=== PATIENT | female | born 1990 | race Caucasian/White ===

== ENCOUNTER → 2021-03-22 02:39 | Outpatient (CLI) | payer OTHER, SELFPAY ==
[2021-03-22 19:54] LABS: SARS-CoV-2 RNA PCR Negative
== END ==
PROVIDERS: Visit Provider Surgery Plastic and Reconstructive Surgery
DX: Z01.812 Encounter for preprocedural laboratory examination (principal); Z20.822 Contact with and (suspected) exposure to COVID-19
CPT/HCPCS: C9803; U0003; U0005

== ENCOUNTER 2021-03-25 08:56 | Day surgery (SDC) | payer OTHER, SELFPAY ==
[2021-03-17 12:09] VITALS: BMI 25.5
--- NOTE | 2021-03-24 13:26 | WPDANESEPPF ---
Anes - Initial Pre Proc Eval Procedure: Operation Date: 03/25/21 10:30 Proposed Procedures p Bilateral Breast Augmentation Mammoplasty - Elgin Francois MD Date/Time: 03/24/21 13:26 Surgeon: Elgin Francois MD Pre Op Diagnosis: Micromastia Patient Data Age: 30 Gender: F Height: 1.7 m Weight: 74 kg Allergies Allergy/AdvReac Type Severity Reaction Status Date / Time No Known Allergies Allergy Verified 03/25/21 09:24 Home Medications Medication Instructions Recorded Confirmed Type trcydxahjtvg-wme-mxhf-FA-vit K 1 tablet PO DAILY 03/17/21 03/25/21 History [Adults Multivitamin] docusate sodium 100 mg capsule 100 mg PO DAILY #14 cap 03/23/21 03/25/21 Rx ondansetron HCl 4 mg tablet 4 mg PO Q8H #21 tablet 03/23/21 03/25/21 Rx Patient hx anesthesia problems: none Family hx anesthesia problems: none PMFSH Social History Social History Smoking status: Never smoker Alcohol intake: current Anes - Eval Final PreProcedure Day of Procedure 03/24/21 13:26 Patient weight: overweight Heart: regular rate and rhythm Lungs: clear to auscultation and normal air movement Airway: Mallampati scale class II Neurological: alert and oriented Last oral intake: >/= 8 hours ASA classification: I Emergent: no Anesthetic plan: proceed Anesthesia type and monitoring: general LMA and standard monitoring Informed Consent: The patient's anesthetic plan and its attendant risks and benefits were discussed with the patient/family/POA. Questions were solicited and answers provided to the satisfaction of the patient/family/POA.
[2021-03-25] VITALS (8 sets, daily range): BP systolic 94–131; BP diastolic 58–78; PULSE 51–87; RESP 14–18; TEMP 36.2–37.2; O2SAT 98–100; BMI 26.6
--- NOTE | 2021-03-25 09:49 | WPDHPUPDATE1 ---
History and Physical Update Update Date/Time: 03/25/21 09:49 History and Physical has been reviewed, including an updated exam of the patient. There are NO changes in the patient's condition. Risks, benefits, and alternatives have been discussed and questions answered. Patient agrees to proceed with procedure.
[2021-03-25] MEDS: LACTATED RINGERS 1,000 ML 30 ML IV CONT ×2 (10:00→11:59)
--- NOTE | 2021-03-25 10:02 | W.PM.PROC2 ---
Procedure Note - Detailed Date of Procedure 03/25/21 Pre-op Diagnosis Micromastia Post-op Diagnosis same Procedure Performed Bilateral Augmentation Mammaplasty Surgeon Elgin Francois MD Anesthesia general Findings Bilateral Fortino Harry SoftTouch 450cc implants Right - REF# [id number] SN [id number] Dual Plane 2 Left - REF# [id number] SN [id number] Dual Plane 3 Description of Procedure She is here today for bilateral breast augmentation. Previously and again today the risks, benefits, alternatives were discussed in extensive detail. I wanted her to be very realistic about the risks involved as well as expectations. We discussed final implant size / selection and she would like to proceed as above. We discussed aftercare and what to monitor for. Made sure answered all of her questions to her satisfaction today and consent was obtained. Marked in the preoperative holding area with their verification. The patient was taken to the operating room placed supine on the operating table. Anesthesia was provided by anesthesiology. A surgical time-out was taken. We cleansed the skin and 1% lidocaine and 0.25% Marcaine with epinephrine was used anesthetize as a field block. She was prepped and draped in a standard sterile fashion. Tegaderm nipple Modi were placed. A 15 blade used to make an incision along the inframammary fold. Dissection was continued at 45 degree angle until the chest wall as identified. I elevated pre-pectoral in a dual plane fashion as noted above. I incised the pectoralis major along its inferior border and completely released the inferior border leaving the medial border intact. I created a subpectoral pocket in the appropriate dimensions based on our preoperative planning for the implant. I then copiously irrigated with saline solution and verified a strict hemostasis. Next the use a triple antibiotic and Betadine containing solution to irrigate the pocket. I washed my gloves with the triple antibiotic and Betadine solution. We washed the implant immediately upon opening it with this solution and only opened it when we needed it. I used implant funnel and no-touch technique. The implant was introduced into the pocket using the funnel. Having verified positioning of the implant this was closed using 2-0 Vicryl followed by 3-0 Monocryl in a running subcuticular 4-0 Monocryl followed by tissue glue. Fluffs, Rajiv wrap, and surgical bra were placed. Patient was awoke and taken to PACU without difficulty. All instrument sponge counts were correct at the end of the case. Estimated Blood Loss 10 Drains No Packing No Pathology none sent Complications No immediate complications Condition stable Disposition PACU
[2021-03-25] MEDS: BUPIVACAINE HCL 0.25% 50 ML VIAL 60 ML INFILTRATE (11:02)
[2021-03-25] MEDS: ONDANSETRON INJ 4 MG/2 ML VIAL IV PUSH (11:30)
[2021-03-25] MEDS: fentaNYL CITRATE INJ (*CRX) 100 MCG/2 ML VIAL 25 MCG IV PUSH ×2 (11:38→11:54)
[2021-03-25] MEDS: diphenhydrAMINE HCl INJ 50 MG/ML VIAL 12.5 MG IV PUSH (12:19)
[2021-03-25] MEDS: SCOPOLAMINE 1.5 MG PATCH TRANSDERM (12:23)
--- NOTE | 2021-03-25 12:56 | WPDANESPN ---
Anes - Prog Note Post-Op Date/Time: 03/25/21 12:56 Cardiovascular status: normal Respiratory status: normal Airway patency: baseline Mental status: baseline Post-Op hydration status: normal Vital Signs: Last Vital Signs Temp 36.4 C 03/25/21 11:30 Pulse 58 L 03/25/21 12:40 Resp 16 03/25/21 12:40 BP 102/67 03/25/21 12:40 Pulse Ox 99 03/25/21 12:40 Pain Score (VAS): 3 I/O: Intake & Output 03/24/21 03/25/21 03/25/21 23:59 07:59 15:59 Intake Total 1000 Balance 1000 Post-procedural complaints: none Patient Feedback: Patient satisfied with anesthetic care. Other Findings: Patient vital signs back to baseline. Patient denies nausea and vomiting. Patient's pain under control. Patient OK for discharge.
--- NOTE | 2021-03-25 13:43 | SUR.PHASEII ---
1143 pt 3 lead EKG looked to have a prolonged ST segment, strip printed and showed to Dr. Ardon. Dr. Seay was ok with it. No orders given.
== END 2021-03-25 13:10 | disposition home or self-care (01) ==
PROVIDERS: Visit Provider Surgery Plastic and Reconstructive Surgery
PROC: (CPT 19325; principal; 2021-03-25 10:30)
DX: N62 Hypertrophy of breast (principal)
CPT/HCPCS: 19325